=== PATIENT | female | born 1960 | race Caucasian/White ===

== ENCOUNTER → 2016-05-11 | Outpatient (CLI) | payer MEDICARE, OTHER ==
[~2016-05-11] MED LIST: AMLODIPINE BESYL5 MG PO; CALCIUM +D & M1 EACH; CIPRO PO; EXCEDRIN MIGRAI1 TA1 PO; FLAGYL PO; FLOMAX0.4 MG PO; FLONASE ALLERG9.9 ML; HYDROCODON-ACE1 EA11 PO; LASIX PO; LIPITOR PO; LORTAB 7.5-5001 TAB PO; LYRICA200 MG PO; MIRABEGRON PO; MULTI-DAY1 TAB PO; PERCOCET 5/321 UDTAB PO; PHENERGAN PO; PHENERGAN PR; PRILOSEC; PRILOSEC40 MG PO; TIZANIDINE HCL4 M1 PO; TYLOX 5/500 CAP1 CAP PO
[2016-05-11 10:06] LABS: BLOOD UREA NITROGEN 20 mg/dL (9-23); BUN/CREATININE RATIO 28.57; CALCIUM SERUM 9.3 mg/dL (8.4-10.2); CARBON DIOXIDE 28 mmol/L (22-31); CHLORIDE 105 mmol/L (100-111); CREATININE SERUM 0.7 mg/dL (0.6-1.4); GLOM FILT RATE Estimated ABOVE60 mL/min (>60); GLUCOSE FASTING 93 mg/dL (70-110); POTASSIUM 4.4 mmol/L (3.5-5.1); SODIUM 139 mmol/L (135-145)
== END | disposition home or self-care (01) ==
LOC: SLAB 09:28
PROVIDERS: Internal Medicine Interventional Cardiology
DX: E87.6 Hypokalemia (principal); M25.561 Pain in right knee; Z86.79 Personal history of other diseases of the circulatory system
CPT/HCPCS: 36415; 80048

== ENCOUNTER → 2016-06-09 | Outpatient (CLI) | payer MEDICARE, OTHER, SELFPAY ==
--- NOTE | ~2016-06-09 | MY11 ---
[facility] A Service of [facility] RADIOLOGY TEXT RESULTS PATIENT: AGGIE CHRISTIANSON LOCATION: [facility] : 62 UNIT #: [id number] AGE: [address]: Edith Ward MD SEX: F ORDER DR: [id number] [place] [id number] O MR#: [id number] Acc #: [id number] NAME: AGGIE CHRISTIANSON : 1960 SEX: F STUDY DATE/TIME: 06/09/2016 9:27 UNIT: [facility] ROOM: STUDY DESCRIPTION: MY Mammogram Screening Dig Tomasz Attending Physician: Edith Ward M.D. Referring Physician: Edith Ward M.D. Ordering Physician: Physician Non-Staff Primary Care Physician: Edith Ward M.D. MEDICAL IMAGING REPORT This report is preliminary unless electronic signature is present. EXAM Bilateral digital screening mammogram with CAD device 06/09/2016 HISTORY Routine screening. FINDINGS Digital imaging of each breast was completed utilizing a two-view examination of each breast in craniocaudal and mediolateral-oblique projections. Review and interpretation of digital mammograms include a second review in conjunction with FDA-approved CAD device. There is a normal parenchymal presentation bilaterally consistent with the patient's age. There are no breast masses imaged and no parenchymal asymmetry is visualized. There are no suspicious microcalcifications and I see no focal architectural disturbance. IMPRESSION Negative screening digital mammogram. One-year followup recommended. Patients over the age of 40 are entered into a reminder system with target due date for the next mammogram. A result letter will also be sent to the patient. BIRADS: 1 Negative Dictated by... Shayan Norman M.D. THIS IS AN ELECTRONICALLY VERIFIED REPORT Shayan Norman M.D. at 06/10/2016 8:27 AM [facility] A Service of [facility] [place] RADIOLOGY TEXT RESULTS PATIENT: AGGIE CHRISTIANSON LOCATION: [facility] : 62 UNIT #: [id number] AGE: [address]: Edith Ward MD SEX: F ORDER DR: Selena TD: 06/09/2016 10:25 JOB #: [id number] MEDICAL IMAGING REPORT Page 1 of 1
--- NOTE | ~2016-06-09 | MR176 ---
[facility] A Service of [facility] & [facility] RADIOLOGY TEXT RESULTS PATIENT: AGGIE CHRISTIANSON LOCATION: [facility] : 62 UNIT #: [id number] AGE: [address]: Edith Ward MD SEX: F ORDER DR: [id number] [address] [address] [id number] O MR#: [id number] Acc #: [id number] NAME: AGGIE CHRISTIANSON : 1960 SEX: F STUDY DATE/TIME: 06/09/2016 9:17 UNIT: [facility] ROOM: STUDY DESCRIPTION: MR Thoracic Wo Contrast Attending Physician: Edith Ward M.D. Referring Physician: Edith Ward M.D. Ordering Physician: Edith Ward M.D. Primary Care Physician: Edith Ward M.D. MRI CENTER REPORT This report is preliminary unless electronic signature is present. EXAM MRI of the thoracic spine without contrast dated 06/09/2016. COMPARISON MRI lumbar spine without contrast dated 06/09/2016. HISTORY Increasing mid back pain, chronic. It has been going on for 10-20 years and particularly in the left side. FINDINGS Multisequence, multiplanar imaging of the thoracic spine was obtained without contrast. Vertebral body height and alignment are presented. No acute fracture or subluxation is seen. There is a small fatty signal lesion noted in the right superolateral body of T11. A larger fatty lesion is also noted in L1 vertebral body measuring 2.3 cm. These have mild associated edema and are probably benign lesions like atypical hemangioma. Mild edematous endplate degenerative changes are also noted in some of the lower endplates of T9 to T10. Tiny right central protrusion is at T3-4. No significant canal stenosis or neural foraminal narrowing is seen. Minimal bilateral facet changes are noted in some of the levels of the lower thoracic spine. Cord is within normal limits. IMPRESSION 1. Minimal degenerative changes are noted in the thoracic spine without canal stenosis or neural foraminal narrowing. 2. Cord is unremarkable. 3. Fatty signal lesions with some edema is noted at T11 and L1 vertebral bodies. The largest one is at L1 measuring 2.3 cm. These are most suggestive of nonaggressive benign lesions like atypical hemangioma, based on statistics. [facility] A Service of [facility] & [facility] RADIOLOGY TEXT RESULTS PATIENT: AGGIE CHRISTIANSON LOCATION: [facility] : 62 UNIT #: [id number] AGE: [address]: Edith Ward MD SEX: F ORDER DR: Dictated by... Houston Nunez M.D. THIS IS AN ELECTRONICALLY VERIFIED REPORT Houston Nunez M.D. at 06/10/2016 9:01 AM CPR/psc TD: 06/09/2016 21:10 JOB #: [id number] MRI CENTER REPORT Page 1 of 1
--- NOTE | ~2016-06-09 | MR113 ---
[facility] A Service of [facility] RADIOLOGY TEXT RESULTS PATIENT: AGGIE CHRISTIANSON LOCATION: [facility] : 62 UNIT #: [id number] AGE: [address]: Edith Ward MD SEX: F ORDER DR: [id number] [place] [id number] O MR#: [id number] Acc #: [id number] NAME: AGGIE CHRISTIANSON : 1960 SEX: F STUDY DATE/TIME: 06/09/2016 9:44 UNIT: [facility] ROOM: STUDY DESCRIPTION: MR Lumbar Wo Contrast Attending Physician: Edith Ward M.D. Referring Physician: Edith Ward M.D. Ordering Physician: Edith Ward M.D. Primary Care Physician: Edith Ward M.D. MRI CENTER REPORT This report is preliminary unless electronic signature is present. EXAM MRI of the lumbar spine without contrast, 06/09/2016 COMPARISON MRI thoracic spine without contrast dated 06/09/2016. No prior lumbar spine studies. HISTORY Increasing mid and low back pain for the last 10 to 20 years, worse on the left side. FINDINGS Multisequence multiplanar imaging of the lumbar spine was obtained without contrast. Vertebral body height and alignment are preserved. There is a fatty signal lesion with edema in the L1 vertebral body measuring about 2.5 cm in greatest AP dimension. No associated pathological fracture or extraosseous soft tissue components are seen. The conus terminates at T12-L1. Signal of conus or cauda equina are within normal limits. Pre and paravertebral soft tissues demonstrate multiple increased T2 signal lesions within the left kidney, incompletely characterized on the current study. L1-2: Small left foraminal to extraforaminal broad-based protrusion with mild left neural foraminal encroachment. Mild bilateral facet changes. No canal stenosis. L2-3: Left foraminal to extraforaminal broad-based protrusion with an extruded component in the left extraforaminal region. There is probably mild left neural foraminal narrowing and borderline sized canal. L3-4: Concentric disc bulge with bilateral foraminal to extraforaminal broad-based protrusions, more prominent in the left. Mild bilateral facet STS. [facility] A Service of [facility] & [facility] RADIOLOGY TEXT RESULTS PATIENT: AGGIE CHRISTIANSON LOCATION: [facility] : 62 UNIT #: [id number] AGE: [address]: Edith Ward MD SEX: F ORDER DR: changes are noted with mild canal stenosis, mild left lateral recess stenosis, mild bilateral neural foraminal narrowing which is worse on the left. L4-5: Concentric disc bulge with superimposed right to left subarticular broad-based disc protrusion with a suspicious extruded component in the center with mild inferior migration. Borderline size to mild canal stenosis, mild bilateral facet changes, mild bilateral lateral recess stenosis and mild to moderate bilateral neural foraminal narrowing. L5-S1: Concentric disc bulge with superimposed central protrusion. There is a left foraminal to extraforaminal broad-based protrusion with mild inferior left neural foraminal narrowing. Mild bilateral facet changes are noted. No canal stenosis. IMPRESSION 1. Degenerative changes are at multiple levels, relatively worse at L4-5 with right to left subarticular broad-based disc protrusion with a suspicious left central small extruded component with mild superior migration. There is only associated borderline sized canal. 2. Mild canal stenosis with mild bilateral neural foraminal narrowing is at L3-4, worse on the left. 3. A 2.5 cm lesion is noted in the L1 vertebral body which has fatty components with some edema. Based on statistics it is probably benign incidental hemangioma. 4. Multiple left renal increased T2 signal lesions are noted which are incompletely characterized on the current study. Refer to prior abdominal imaging. Depending on the clinical need, renal ultrasound can be performed. Dictated by... Houston Nunez M.D. THIS IS AN ELECTRONICALLY VERIFIED REPORT Houston Nunez M.D. at 06/10/2016 9:01 AM BON/precious TD: 06/09/2016 21:16 JOB #: [id number] MRI CENTER REPORT Page 1 of 1
== END | disposition home or self-care (01) ==
LOC: SMAM 08:38
DX: Z12.31 Encounter for screening mammogram for malignant neoplasm of breast (principal); M51.26 Other intervertebral disc displacement, lumbar region; M47.814 Spondylosis without myelopathy or radiculopathy, thoracic region; M89.9 Disorder of bone, unspecified; M47.816 Spondylosis without myelopathy or radiculopathy, lumbar region; M48.06 Spinal stenosis, lumbar region
CPT/HCPCS: 72146; 72148; G0202